=== PATIENT | female | born 1945 | race Caucasian/White ===

== ENCOUNTER 2022-05-28 15:19 | Inpatient (IN) | payer OTHER ==
[2022-05-28] MEDS ORDERED: SODIUM CHLORIDE 0.9% 500 ML INFUS.BAG IV ONE ×2 (16:49→19:06)
[2022-05-28 18:31] LABS: BASO % 0.2 % (0-2.0); HEMATOCRIT 39.6 % (32.4-45.2); HEMOGLOBIN 13.6 GM/dL (10.7-15.3); LYMPH % 4.7 % (8-40); MCH 29.8 pg (25.7-33.7); MCHC 34.4 g/dl (32.0-36.0); MEAN CELL VOLUME 86.6 fl (80-96); MEAN PLT VOLUME 7.5 fl (7.5-11.1); MONO % 4.2 % (3.8-10.2); NEUT % 90.9 % (42.8-82.8); PLATELET COUNT 147 10^3/uL (134-434); RBC 4.57 M/mm3 (3.60-5.2); RDW 12.8 % (11.6-15.6); WHITE BLOOD COUNT 17.2 K/mm3 (4.0-10.0)
[2022-05-28 18:48] LABS: BLOOD UREA NITROGEN 13.9 mg/dL (7-18); CALCIUM 8.5 mg/dL (8.5-10.1)
[2022-05-28 18:52] LABS: CREATININE 0.7 mg/dL (0.55-1.3)
[2022-05-28 18:54] LABS: BILIRUBIN,TOTAL 1.1 mg/dL (0.2-1); TOT PROT 6.3 g/dl (6.4-8.2)
[2022-05-28] MEDS ORDERED: ACETAMINOPHEN 1000 MG/100 ML BAG IVPB ONE (20:59)
[2022-05-28] MEDS ORDERED: ACETAMINOPHEN INJECTION 100 ML IVPB ONE (21:02)
[2022-05-28 21:47] LABS: LACTIC ACID 2.5 mmol/L (0.4-2.0)
[2022-05-28 22:33] LABS: EPI CELLS 16 /uL (0-25.1); HYALINE CASTS 0 /uL (0-3.1); URINE APPEARANCE CLEAR; URINE BACTERIA 85 /uL (0-1359); URINE BILIRUBIN NEGATIVE (NEGATIVE); URINE COLOR YELLOW; URINE GLUCOSE (UA) NEGATIVE (NEGATIVE); URINE KETONE TRACE (NEGATIVE); URINE LEUK ESTERASE TRACE (NEGATIVE); URINE NITRITE NEGATIVE (NEGATIVE); URINE PROTEIN 2+ (NEGATIVE); URINE RBC 1368 /uL (0-23.9); URINE WBC 120 /uL (0-25.8)
[2022-05-29] MEDS ORDERED: ACETAMINOPHEN INJECTION 100 ML IVPB ONE (06:21)
[2022-05-29] MEDS: ACETAMINOPHEN 1000 MG/100 ML BAG IVPB PRN ×2 (06:24→14:35)
[2022-05-29 07:55] LABS: BASO % 0.4 % (0-2.0); EOS % 0.8 % (0-4.5); HEMATOCRIT 37.9 % (32.4-45.2); HEMOGLOBIN 13.2 GM/dL (10.7-15.3); LYMPH % 5.1 % (8-40); MCH 30.1 pg (25.7-33.7); MCHC 34.9 g/dl (32.0-36.0); MEAN CELL VOLUME 86.1 fl (80-96); MEAN PLT VOLUME 7.8 fl (7.5-11.1); MONO % 4.1 % (3.8-10.2); NEUT % 89.6 % (42.8-82.8); PLATELET COUNT 126 10^3/uL (134-434); RDW 12.8 % (11.6-15.6); WHITE BLOOD COUNT 13.5 K/mm3 (4.0-10.0)
[2022-05-29 08:14] LABS: BILIRUBIN,TOTAL 1.1 mg/dL (0.2-1); TOT PROT 5.8 g/dl (6.4-8.2)
[2022-05-29 08:16] LABS: ALBUMIN 2.8 g/dl (3.4-5.0); CREATININE 0.4 mg/dL (0.55-1.3)
[2022-05-29 08:17] LABS: CALCIUM 8.1 mg/dL (8.5-10.1)
[2022-05-29 08:18] LABS: MAGNESIUM 2.3 mg/dL (1.8-2.4)
[2022-05-29 08:39] LABS: PHOSPHOROUS 1.5 mg/dL (2.5-4.9)
[2022-05-29] MEDS ORDERED: LACTATED RINGERS IVPB ONE (08:49)
[2022-05-29] MEDS ORDERED: POTASSIUM PHOSPHATE IVPB ONE (08:49)
[2022-05-29] MEDS ORDERED: POTASSIUM PHOSPHATE 30 MM in SODIUM CHLORIDE 500 ML IVPB ONE (09:26)
[2022-05-29 09:36] VITALS: BMI 18.1
[2022-05-29] MEDS: ENOXAPARIN NA (PORCINE) 40 MG/0.4 ML DISP.SYRIN SQ SCH (10:48)
[2022-05-29] MEDS ORDERED: SODIUM CHLORIDE 1,000 ML IV STA (11:33)
[2022-05-29] MEDS ORDERED: SODIUM CHLORIDE 1,000 ML IV SCH (11:45)
[2022-05-29 12:21] LABS: PH,URINE 6.5 (5.0-8.0); URINE APPEARANCE CLEAR; URINE BILIRUBIN NEGATIVE (NEGATIVE); URINE COLOR YELLOW; URINE GLUCOSE (UA) NEGATIVE (NEGATIVE); URINE KETONE TRACE (NEGATIVE); URINE LEUK ESTERASE TRACE (NEGATIVE); URINE NITRITE NEGATIVE (NEGATIVE); URINE PROTEIN 1+ (NEGATIVE)
[2022-05-29 12:28] LABS: EPI CELLS 7.4 /uL (0-25.1); URINE BACTERIA 13.3 /uL (0-1359); URINE RBC 332.8 /uL (0-23.9); URINE WBC 20.8 /uL (0-25.8)
[2022-05-29] MEDS ORDERED: PIPERACILLIN/TAZOB 3.375 GM 3.375 GM in DEXTROSE 5%-WATER - 50 ML IVPB SCH ×2 (14:15→18:00)
[2022-05-29] MEDS ORDERED: DEXTROSE 5%-WATER - 50 ML IVPB ONE ×2 (14:57→18:26)
[2022-05-29] MEDS ORDERED: PIPERACILLIN/TAZOBACTAM 3.375 GM VIAL IVPB ONE (14:57)
[2022-05-29] MEDS ORDERED: cefTRIAXone SODIUM 1 GM VIAL ONE (18:26)
[2022-05-29] MEDS: CEFTRIAXONE 1 GM in DEXTROSE 5%-WATER - 50 ML IVPB SCH (18:27)
[2022-05-29 19:09] LABS: BLOOD UREA NITROGEN 9.5 mg/dL (7-18)
[2022-05-29 19:12] LABS: CREATININE 0.5 mg/dL (0.55-1.3)
[2022-05-30] MEDS ORDERED: cefTRIAXone SODIUM 1 GM VIAL ONE (09:49)
[2022-05-30] MEDS ORDERED: DEXTROSE 5%-WATER - 50 ML IVPB ONE (09:50)
[2022-05-30] MEDS: ENOXAPARIN NA (PORCINE) 40 MG/0.4 ML DISP.SYRIN SQ SCH (09:55)
[2022-05-30] MEDS: CEFTRIAXONE 1 GM in DEXTROSE 5%-WATER - 50 ML IVPB SCH (09:55)
[2022-05-30 11:02] LABS: BASO % 0.1 % (0-2.0); EOS % 0.2 % (0-4.5); HEMATOCRIT 32.2 % (32.4-45.2); HEMOGLOBIN 11.2 GM/dL (10.7-15.3); MCH 30.4 pg (25.7-33.7); MCHC 34.9 g/dl (32.0-36.0); MEAN CELL VOLUME 87.2 fl (80-96); MEAN PLT VOLUME 7.5 fl (7.5-11.1); MONO % 5.1 % (3.8-10.2); NEUT % 81.6 % (42.8-82.8); PLATELET COUNT 126 10^3/uL (134-434); RBC 3.69 M/mm3 (3.60-5.2); RDW 13.1 % (11.6-15.6); WHITE BLOOD COUNT 8.9 K/mm3 (4.0-10.0)
[2022-05-30 11:57] LABS: CALCIUM 7.7 mg/dL (8.5-10.1)
[2022-05-30 11:58] LABS: BLOOD UREA NITROGEN 10.1 mg/dL (7-18); MAGNESIUM 2.2 mg/dL (1.8-2.4)
[2022-05-30 12:00] LABS: BILIRUBIN,DIRECT 0.2 mg/dL (0.0-0.2)
[2022-05-30 12:01] LABS: CREATININE 0.4 mg/dL (0.55-1.3); PHOSPHOROUS 1.7 mg/dL (2.5-4.9)
[2022-05-30] MEDS ORDERED: MAGNESIUM SULF 50% (8.12 MEQ/2 ML-1 GM VIAL) IVPB ONE (14:20)
[2022-05-30] MEDS ORDERED: POTASSIUM PHOSPHATE 30 MM in SODIUM CHLORIDE 500 ML IVPB ONE (14:40)
[2022-05-30] MEDS: KETOCONAZOLE 2% CREAM - 60GM TUBE TP SCH (20:30)
[2022-05-31] MEDS ORDERED: POLYETHYLENE GLYCOL (HEALTHYLAX) 3350 17 GM PACKET PO SCH (10:00)
[2022-05-31] MEDS ORDERED: DEXTROSE 5%-WATER - 50 ML IVPB ONE (10:05)
[2022-05-31] MEDS ORDERED: cefTRIAXone SODIUM 1 GM VIAL ONE (10:05)
[2022-05-31] MEDS: KETOCONAZOLE 2% CREAM - 60GM TUBE TP SCH (10:11)
[2022-05-31] MEDS: CEFTRIAXONE 1 GM in DEXTROSE 5%-WATER - 50 ML IVPB SCH (10:11)
[2022-05-31] MEDS: ENOXAPARIN NA (PORCINE) 40 MG/0.4 ML DISP.SYRIN SQ SCH (10:11)
[2022-05-31 11:56] LABS: BASO % 0.3 % (0-2.0); EOS % 1.6 % (0-4.5); HEMOGLOBIN 11.6 GM/dL (10.7-15.3); LYMPH % 23.3 % (8-40); MCH 30.4 pg (25.7-33.7); MCHC 35.3 g/dl (32.0-36.0); MEAN CELL VOLUME 86.1 fl (80-96); MEAN PLT VOLUME 7.1 fl (7.5-11.1); MONO % 9.2 % (3.8-10.2); NEUT % 65.6 % (42.8-82.8); PLATELET COUNT 169 10^3/uL (134-434); RBC 3.83 M/mm3 (3.60-5.2); RDW 13.3 % (11.6-15.6); WHITE BLOOD COUNT 5.8 K/mm3 (4.0-10.0)
[2022-05-31 12:30] LABS: BLOOD UREA NITROGEN 7.5 mg/dL (7-18)
[2022-05-31 12:34] LABS: CREATININE 0.3 mg/dL (0.55-1.3); PHOSPHOROUS 2.7 mg/dL (2.5-4.9)
[2022-05-31 12:38] LABS: CALCIUM 8.1 mg/dL (8.5-10.1); MAGNESIUM 2.3 mg/dL (1.8-2.4)
[2022-05-31 14:23] VITALS: BP 115/60; PULSE 86; TEMP 98.4
[2022-05-31] MEDS ORDERED: SENNOSIDES 8.6MG TABLET (FP) PO SCH (22:00)
== END 2022-05-31 14:40 | disposition home or self-care (01) | DRG 392 ==
LOC: JERFT 15:19 → JER 15:19 → JERBED 21:20 → J6S 05-29 08:30
PROVIDERS: ADMIT Hospitalist
DX: K52.9 Noninfective gastroenteritis and colitis, unspecified (principal); E87.1 Hypo-osmolality and hyponatremia; E87.2 Acidosis; D72.829 Elevated white blood cell count, unspecified; N28.1 Cyst of kidney, acquired; R31.29 Other microscopic hematuria; E86.0 Dehydration; R53.1 Weakness; R10.84 Generalized abdominal pain; K76.89 Other specified diseases of liver; D69.6 Thrombocytopenia, unspecified
CPT/HCPCS: 0241U-QW; 36415; 71046-TC-FY; 74177-TC; 80048; 80053; 81003; 82248; 83605; 83735; 83930; 83935; 84100; 84300; 84443; 85025; 86850; 86900; 86901; 87040; 87045; 87046; 87086; 87186; 87324; 87449; 93005; 93010; 99285-25; Q9967